=== PATIENT | female | born 1950 | race Caucasian/White ===

== ENCOUNTER 2016-10-20 18:48 | Emergency (ER) | payer MEDICARE ==
[2016-10-20] MEDS ORDERED: IPRATROPIUM/ALBUTEROL 3 ML VIAL NEB ONE (19:21)
[2016-10-20] MEDS ORDERED: SODIUM CHLORIDE 0.9% 1000ML 500 ML IVS ONE (20:53)
[2016-10-20] MEDS ORDERED: HEPARIN SODIUM (PORCINE) 5,000 U/ML VIAL IV ONE (20:54)
[2016-10-20] MEDS ORDERED: ASPIRIN (CHEWABLE) 81 MG TAB PO ONE (20:57)
--- NOTE | 2016-10-20 21:12 | RAD ---
Procedure: XR CHEST 2 VIEWS Exam Date: 10/20/2016 Ordering Provider: Roberth Wild Clinical Indication: hypoxia Comparison: 10/26/2014 Findings: The heart is enlarged. Pulmonary vasculature is normal. Mediastinal contour is normal. Aortic contour is normal. Subtle hazy opacities in the right upper lobe may represent early infiltrate. Subsegmental atelectasis/scarring in the left upper lobe. No pleural effusion. There is no pneumothorax. There is no acute bony or soft tissue abnormality. Impression: 1. Subtle hazy opacities in the right upper lobe may represent early infiltrate. 2. Cardiomegaly. Electronically signed by: Abraham Kelsey MD 10/20/2016 9:11 PM CDT
--- NOTE | 2016-10-20 21:17 | ED.PDOC ---
History of Present Illness - General Chief Complaint: Respiratory Problem Stated Complaint: Dx'd with Pneumonia, Nauseated Time Seen by Provider: 10/20/16 18:56 Source: patient, family Exam Limitations: no limitations - History of Present Illness Initial Comments: the patient is a 66-year-old female presenting to the emergency room secondary to persistent shortness of breath. The patient first developed shortness of breath approximately one week ago. She reports having diaphoretic episodes. No chest pain. She does get more short of breath with lying back. No palpitations. No syncopal or near syncope. She reports a very poor appetite. She does not report any new back pain or abdominal pain. No blood in the stools or urine. No difficulties with urination. She reports a sputum that is mainly quite. No blood in her sputum. She reports increased dyspnea on exertion. She is mildly tachypnea upon her arrival here. Oxygen saturations upon arrival here on room air are 83-86%. The patient has no history of any cardiopulmonary disease to speak of. The patient did have one kidney removed several years ago secondary to a mass that turned out to be benign apparently. The patient saw her primary care doctor early this week and was started on oral azithromycin and a oral cephalosporin. She has failed to improve so she showed up here tonight. Timing/Duration: 1 week Severity: moderate Improving Factors: nothing Worsening Factors: eating Associated Symptoms: cough, diaphoresis, loss of appetite, malaise, shortness of breath, weakness Allergies/Adverse Reactions: Allergies Allopurinol Allergy (Verified 07/20/16 09:08) Carbamazepine [From Tegretol] Allergy (Verified 10/04/12 15:11) Febuxostat [From Uloric] Allergy (Verified 07/20/16 09:08) Latex Allergy (Verified 07/20/16 09:08) Methylprednisolone [From Solu-Medrol] Allergy (Verified 07/20/16 09:08) Phenytoin [From Dilantin] Allergy (Verified 10/04/12 15:11) Home Medications: Ambulatory Orders Pregabalin [Lyrica] 150 mg PO BID #0 10/06/12 Tramadol HCl 50 mg PO PRN PRN #0 10/06/12 Verapamil HCl [Verapamil HCl SA] 240 mg PO HS #0 10/06/12 Diphenhydramine HCl [Benadryl] 25 mg PO PRN 07/20/16 Valsartan [Diovan] 160 mg PO HS 07/20/16 Review of Systems - Review of Systems Constitutional: States: diaphoresis, malaise, weakness EENTM: States: no symptoms reported Respiratory: States: cough, orthopnea, short of breath Cardiology: States: no symptoms reported Gastrointestinal/Abdominal: States: other - ild anorexia Genitourinary: States: no symptoms reported Musculoskeletal: States: no symptoms reported Skin: States: no symptoms reported Neurological: States: no symptoms reported Endocrine: States: excessive sweating Hematologic/Lymphatic: States: no symptoms reported All other Systems: No Change from Baseline Past Medical History (General) - Patient Medical History Hx Seizures: No Hx Stroke: No Hx Asthma: No Hx of COPD: No Hx Cardiac Disorders: No Hx Congestive Heart Failure: No Hx Pacemaker: No Hx Hypertension: Yes Hx Diabetes: No Hx Cancer: No Hx Hepatitis C: No Hx MRSA: No Surgical History: Hysterectomy - Vaccination History Hx Tetanus, Diphtheria Vaccination: Yes Hx Influenza Vaccination: Yes Hx Pneumococcal Vaccination: Yes Immunizations Up to Date: Yes - Social History Hx Tobacco Use: No Hx Chewing Tobacco Use: No Hx Alcohol Use: No Hx Substance Use: No Hx Substance Use Treatment: No Hx Depression: No Feels Threatened In Home Enviroment: No Feels Threatened In a Relationship: No Hx Physical Abuse: No Hx Emotional Abuse: No Hx Suspected Abuse: No - Female History Patient is a Female of Child Bearing Age (10 -59 yrs old): No Patient : No Family Medical History - Family History Mother Family History: Unknown Physical Exam - Physical Exam General Appearance: Alert, No apparent distress Eye Exam: bilateral normal Ears, Nose, Throat: normal ENT inspection, normal pharynx Neck: non-tender, full range of motion Respiratory: chest non-tender, other - the patient has mild bibasilar rales. She is to. There is mild accessory muscle use. Cardiovascular/Chest: normal peripheral pulses, regular rate, rhythm - occasional PVCs on telemetry, no edema Peripheral Pulses: radial,right: 2+, radial,left: 2+, dorsalis pedis,right: 2+, dorsalis pedis,left: 2+ Gastrointestinal/Abdominal: non tender - morbidly obese, soft Rectal Exam: deferred Back Exam: normal inspection, no CVA tenderness, no vertebral tenderness Extremity: normal range of motion, non-tender, normal inspection, no pedal edema , normal capillary refill Neurologic: no motor/sensory deficits, alert, normal mood/affect, oriented x 3 Skin Exam: normal color Comments: Vital Signs - 24 hr 10/20/16 10/20/16 10/20/16 19:40 19:44 19:46 Temperature 97.8 F Pulse Rate 67 Pulse Rate [L 63 63 arm] Respiratory 22 18 Rate Blood Pressure 132/95 [L Arm] O2 Sat by Pulse 86 L 99 Oximetry 10/20/16 10/20/16 10/20/16 19:59 20:00 20:02 Temperature Pulse Rate 67 Pulse Rate [L 70 74 arm] Respiratory 24 24 Rate Blood Pressure 132/85 148/33 [L Arm] O2 Sat by Pulse 93 L 92 L 88 L Oximetry 10/20/16 10/20/16 20:58 21:11 Temperature Pulse Rate 67 70 Pulse Rate [L 72 70 arm] Respiratory 24 24 Rate Blood Pressure 150/98 182/78 [L Arm] O2 Sat by Pulse 93 L 94 L Oximetry Progress - Progress Progress: 10/20/16 21:22 the patient is a 66-year-old female presenting with shortness of breath and hypoxia of an uncertain cause. Abnormalities seen in the workup included a chest x-ray consistent with cardiac strain, and elevated d-dimer and BNP, elevated liver function tests and an elevated troponin along with acute renal failure. Pulmonary embolus is certainly high on the differential and a VQ scan is likely warranted for the patient. Additionally an echocardiogram may prove useful. The patient has been given a dose of heparin IV here along with a dose of baby aspirin and supplemental oxygen. A urinalysis is still pending. Additional imaging in the form of CT scans without contrast may be warranted if the above workup fails to pinpoint the source of her decompensation. Again the patient has been on oral azithromycin and an oral cephalosporin for the last 3-4 days. transferring for higher level of care. The patient is much more comfortable after starting supplemental oxygen and is currently in no significant distress. - Results/Orders Results/Orders: Laboratory Tests 10/20/16 19:36 WBC 10.4 RBC 4.31 Hgb 12.1 Hct 36.4 MCV 84.4 MCH 28.1 MCHC 33.3 RDW 13.8 Plt Count 166 MPV 7.9 Absolute Neuts (auto) 7.40 H Absolute Lymphs (auto) 2.00 Absolute Monos (auto) 0.80 Absolute Eos (auto) 0.00 Absolute Basos (auto) 0.10 Neutrophils % 71.7 Lymphocytes % 19.4 L Monocytes % 7.9 Eosinophils % 0.0 L Basophils % 1.0 PT 13.7 H INR 1.210 PTT (SP) 29.6 D-Dimer, Quantitative 911 H* Sodium 137 Potassium 3.5 L Chloride 100 L Carbon Dioxide 26 Anion Gap 14.5 BUN 51 H Creatinine 2.45 H BUN/Creatinine Ratio 20.8 H Random Glucose 147 H Serum Osmolality 290.2 Calcium 9.2 Total Bilirubin 0.8 AST 80 H ALT 83 H Alkaline Phosphatase 46 Creatine Kinase 106 CK-MB (CK-2) 8.0 H* CK-MB (CK-2) % Not Reportable Troponin I 1.34 H* B-Natriuretic Peptide 552.0 H* Serum Total Protein 7.2 Albumin 3.7 Globulin 3.5 Albumin/Globulin Ratio 1.1 urinalysis is pending at this time. EKG shows normal sinus rhythm at a rate of 74 bpm. There is mild left axis deviation. Normal R-wave progression in anterior leads. No acute ST segment changes concerning for ischemia. There is a PVC. EKG is consistent with EKG from 2015. Patient was apparently seen by Dr. madrid in 2014 and was discharged from his clinic with a Bill of good health according to the patient. chest x-ray shows cardiomegaly with cephalization. I see no discrete focal pneumonia. There is possibly a nodule in the right middle to upper lobe. Radiology over read on the chest x-ray is pending due to technical difficulties. - EKG/XRAY/CT CT Ordered: No CT Interpretation Call Back: No Departure - Departure Clinical Impression: Hypoxia Acute renal failure Qualifiers: Acute renal failure type: unspecified Qualifier Code: (N17.9) Acute kidney failure, unspecified Congestive heart failure Qualifiers: Congestive heart failure type: unspecified congestive heart failure type Congestive heart failure chronicity: acute Qualifier Code: (I50.9) Heart failure , unspecified Disposition: Transfer to Hospital Home Medications: Ambulatory Orders Pregabalin [Lyrica] 150 mg PO BID #0 10/06/12 Tramadol HCl 50 mg PO PRN PRN #0 10/06/12 Verapamil HCl [Verapamil HCl SA] 240 mg PO HS #0 10/06/12 Diphenhydramine HCl [Benadryl] 25 mg PO PRN 07/20/16 Valsartan [Diovan] 160 mg PO HS 07/20/16 Transfer to Outside Facility - Transfer Information Accepting Provider:: dr rollins Accepting Facility: [facility] Reason for Transfer: specialized care not available
[2016-10-20 22:09] VITALS: BP 153/75; TEMP 96.5; O2SAT 93
== END 2016-10-20 22:16 | disposition short-term general hospital (02) ==
LOC: ER 18:48
DX: R09.02 Hypoxemia (principal); N17.9 Acute kidney failure, unspecified; I11.0 Hypertensive heart disease with heart failure; I50.9 Heart failure, unspecified; Z79.899 Other long term (current) drug therapy; Z88.8 Allergy status to other drugs, medicaments and biological substances; Z91.040 Latex allergy status; Z90.5 Acquired absence of kidney
CPT/HCPCS: 36415; 71020; 80053; 82550; 82553; 83880; 84484; 85025; 85379; 85610; 85730; 87040; 87502; 93005; 94640; J1644; J7030; J7620

== ENCOUNTER → 2017-06-05 | Outpatient (CLI) | payer MEDICARE ==
--- NOTE | 2017-06-05 09:14 | US ---
EXAM DESCRIPTION: Renal CLINICAL HISTORY: 67 years, Female, CYST OF KIDNEY COMPARISON: April 13, 2016 renal ultrasound FINDINGS: The right kidney has been removed similar to prior study. No abnormality seen in the right renal fossa. On today's examination left kidney 12.1 cm in length. There is a well-circumscribed echogenic mass interpolar region measuring 1.7 x 1.4 x 1.5 cm. This lesion does not demonstrate obvious increased vascularity by Doppler imaging. No images of the bladder provided. IMPRESSION: New hypoechoic lesion left kidney interpolar region compared to last year. Recommend additional characterization with renal protocol CT scan Electronically signed by: Juan Antonio Alston MD 06/05/2017 9:13 AM [employer]
== END | disposition home or self-care (01) ==
LOC: US 10:35
PROVIDERS: ATTEND Urology
DX: N28.1 Cyst of kidney, acquired (principal)

== ENCOUNTER → 2017-06-28 | Outpatient (CLI) | payer MEDICARE | END | disposition home or self-care (01) | LOC: GMAB 10:30 | PROVIDERS: ATTEND Family Medicine | DX: I10 Essential (primary) hypertension (principal) ==

== ENCOUNTER → 2017-11-22 | Outpatient (CLI) | payer MEDICARE ==
--- NOTE | 2017-11-22 16:15 | MRI ---
MRI left knee without contrast INDICATION: Osteoarthrosis knee pain chronic TECHNIQUE: Noncontrast MR imaging left knee FINDINGS: There is ganglion formation posterior to the PCL in the midline and small adjacent Mckeon's cyst with intracystic body/filling defect. Fairly large joint effusion with advanced patellofemoral chondrosis and osteoarthrosis. Mild lateral patellar tracking/subluxation. Extensive grade 4 chondrosis throughout the lateral patellofemoral joint with marginal osteophytes. Deficient ACL chronic in appearance. PCL is intact with only mild interstitial degenerative signal. No rupture of the extensor tendons. Severe diffuse grade 4 chondrosis and osteoarthrosis throughout the lateral tibiofemoral compartment. Severe volume loss of the lateral meniscus with diffuse degenerative tear. Diffuse degenerative tear posterior horn medial meniscus extending into the meniscal body and anterior horn with mild free edge fraying. Moderate osteoarthrosis the medial tibiofemoral compartment. There is intraosseous cystic change in the distal femur with adjacent marrow edema. There appears to be intraosseous cystic change emanating from the femoral attachment of the gastrocnemius tendons. The vague lesion surrounded by edema in the medial distal femoral metaphysis is most likely related to the cystic change. Chondroid lesion superimposed on this would be a consideration but less likely. This probably emanates from the medial head gastrocnemius attachment. CT would be useful to help confirm this to exclude underlying chondroid matrix IMPRESSION: Severe osteoarthrosis throughout the left knee with prominent intraosseous cystic changes in the distal femur with adjacent marrow edema see above discussion and recommendations Diffuse degenerative tears of both menisci Chronically deficient ACL with interstitial mucoid degeneration/ganglion from remote tear probably functionally absent Large joint effusion Extraosseous ganglion formation posterior midline near the PCL Mckeon's cyst with intracystic body Electronically signed by: Cristofer Gray MD 11/22/2017 4:13 PM CDT
== END ==
LOC: MRI 14:00
PROVIDERS: ATTEND Family Medicine
DX: M17.12 Unilateral primary osteoarthritis, left knee (principal); M25.462 Effusion, left knee; M71.22 Synovial cyst of popliteal space [Baker], left knee

== ENCOUNTER → 2018-01-03 | Outpatient (CLI) | payer MEDICARE | LOC: GMAB 10:39 | PROVIDERS: ATTEND Family Medicine | DX: Z01.818 Encounter for other preprocedural examination (principal); Z51.81 Encounter for therapeutic drug level monitoring ==

== ENCOUNTER → 2018-05-17 | Outpatient (CLI) | payer MEDICARE ==
--- NOTE | 2018-05-17 10:59 | US ---
EXAM DESCRIPTION: Renal: Ultrasound. CLINICAL HISTORY: CYST COMPARISON: Bilateral renal arterial Doppler evaluation on the same visit. TECHNIQUE: Transcutaneous scanning: Two-dimensional and Doppler modes. FINDINGS: Right kidney has been surgically removed. Fatty mesentery in the right renal fossa. Left kidney measures 11.0 x 5.6 x 5.5 cm; mid-renal cortical thickness 11 mm. Normal cortical echogenicity. Circumscribed, echogenic mass in the cortex, uniform echoes, 1.6 x 1.4 cm. Nonvascular. No hydronephrosis. No echogenic stones. 8 x 7 mm nonvascular anechoic cyst. Smooth contour of the kidney with no perinephric fluid. Normal vascularity.. Proximal ureter not visualized. Urinary bladder was visualized. Prevoid volume 83.1 mL. Ureteral jet in the bladder seen on the left by Doppler. Patient did not void. Abdominal aorta diameter(cm): Proximal - 2.5 Mid - 1.7 Distal - 1.6. IMPRESSION: 1. Right kidney has been surgically removed. 2. Left kidney normal size with thinning of the cortex. 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 No clinical significance. Left ureter not visualized. 3. Minimal filling of the urinary bladder. Left ureteral jets seen by Doppler. No fluid around the bladder. Normal caliber of the abdominal aorta. Electronically signed by: Boo Walker MD 05/17/2018 10:57 AM CDT
== END ==
LOC: US 09:00
PROVIDERS: ATTEND Urology
DX: N28.1 Cyst of kidney, acquired (principal); Z90.5 Acquired absence of kidney

== ENCOUNTER → 2018-07-01 | Outpatient (CLI) | payer MEDICARE | LOC: GMAE 10:58 | PROVIDERS: ATTEND Family Medicine | DX: I10 Essential (primary) hypertension (principal); M10.9 Gout, unspecified ==

== ENCOUNTER → 2018-11-28 | Outpatient (CLI) | payer MEDICARE ==
--- NOTE | 2018-11-28 11:31 | US ---
History: Follow-up left adrenal nodule. Right nephrectomy. Renal ultrasound: The left kidney is 12.0 cm in length. Right renal bed is unremarkable. Study is compared with exam from 05/2017. Diffusely echogenic 14 mm nodule lower pole left kidney is stable and unchanged and sonographically compatible with the known angiomyolipoma. 7 mm simple cyst is also demonstrated in the upper pole of the left renal cortex. The renal cortical thickness is well-maintained. No echogenic stones are demonstrated. No obstruction is shown. The urinary bladder is only partially distended and appears unremarkable. IMPRESSION: Stable 14 mm nodule left kidney since 2016 in a patient status post right nephrectomy. Ultrasound findings are compatible with clinical diagnosis of angiomyolipoma. Electronically signed by: Jeannie Dyer MD 11/28/2018 11:29 AM CDT
== END ==
LOC: US 09:00
PROVIDERS: ATTEND Urology
DX: D30.02 Benign neoplasm of left kidney (principal)

== ENCOUNTER 2019-03-26 05:42 | Day surgery (SDC) | payer MEDICARE ==
[2019-03-26] MEDS ORDERED: LACTATED RINGERS 1,000 ML ONE (06:00)
--- NOTE | 2019-03-26 09:22 | OP ---
DATE OF PROCEDURE: 03/26/19 PREOPERATIVE DIAGNOSIS: 1. History of polyps. Her last colonoscopy was 2012. POSTOPERATIVE DIAGNOSIS: 1. Two colonic polyps. 2. Sigmoid diverticulosis. 3. Internal hemorrhoids. PROCEDURE: 1. Colonoscopy plus polypectomy. SURGEON: Jerome Polk MD. COMPLICATIONS: None apparent. BLOOD LOSS: None. MEDICATIONS: Monitored anesthesia care. DESCRIPTION OF PROCEDURE: Informed consent was obtained prior to sedation. The preprocedure cardiopulmonary assessment was satisfactory. The patient was placed in the left lateral decubitus position and was sedated. A digital rectal exam was performed and was unremarkable. The tip of the Olympus colonoscope was inserted in the rectum and guided over to the cecum. The cecum was identified by locating the ileocecal valve and appendiceal orifice. Prep was good. The mucosa of the cecum, ascending colon, hepatic flexure, transverse colon, splenic flexure, descending colon and sigmoid colon was closely examined. Direct and retroflexed views of the rectum were obtained. The patient had two small sessile polyps, both about 3 mm in size. One was in the descending colon and one was in the sigmoid colon. These were both removed with a cold snare and recovered. There was sigmoid diverticulosis. There were internal hemorrhoids. Otherwise, the colonoscopy was unremarkable. RECOMMENDATIONS: Followup the polyp pathology. I will recommend a followup colonoscopy in 5 years because of her history of polyps. #[id number] cc: Emery Salvador MD [facility]
[2019-03-26 10:00] VITALS: BP 186/86; TEMP 97.1; O2SAT 97
[2019-03-26] MEDS ORDERED: PROPOFOL 200 MG/20 ML VIAL IV ONE (10:00)
[2019-03-26] MEDS ORDERED: LIDOCAINE 1% 10 ML VIAL INJ ONE (10:00)
== END 2019-03-26 09:50 | disposition home or self-care (01) ==
LOC: AMB 05:42
PROVIDERS: ATTEND Internal Medicine Gastroenterology
DX: Z12.11 Encounter for screening for malignant neoplasm of colon (principal); D12.4 Benign neoplasm of descending colon; D12.5 Benign neoplasm of sigmoid colon; K57.30 Diverticulosis of large intestine without perforation or abscess without bleeding; K64.8 Other hemorrhoids; I10 Essential (primary) hypertension; E66.9 Obesity, unspecified; Z68.38 Body mass index [BMI] 38.0-38.9, adult; Z86.010 Personal history of colon polyps; Z90.710 Acquired absence of both cervix and uterus; Z96.659 Presence of unspecified artificial knee joint; Z79.899 Other long term (current) drug therapy
CPT/HCPCS: 00812; 45385; 88305; J3490; J7120

== ENCOUNTER → 2019-07-24 | Outpatient (CLI) | payer MEDICARE | LOC: GMAE 10:15 | PROVIDERS: ATTEND Family Medicine | DX: M10.9 Gout, unspecified (principal); I10 Essential (primary) hypertension ==

== ENCOUNTER → 2019-11-27 | Outpatient (CLI) | payer MEDICARE ==
--- NOTE | 2019-11-27 15:34 | US ---
EXAM DESCRIPTION: Renal: Ultrasound. CLINICAL HISTORY: 69 years Female HISTORY OF LEFT RENAL CYST. Renal angiomyolipoma. COMPARISON: Ultrasound renal November 2018, April 2018, and May 2017. TECHNIQUE: Transcutaneous scanning: Two-dimensional and Doppler modes. Technically difficult study due to patient body habitus. FINDINGS: Right renal fossa contains no fluid or soft tissue mass. Left kidney measures 11.5 x 6.0 x 4.9 cm; mid-renal cortical thickness normal with normal. echogenicity. No hydronephrosis. No echogenic stones. Echogenic object within the mid left kidney measures 1.5 x 1.2 x 1.3 cm which is stable since the prior study. Juxtacortical cyst on the upper pole measuring 1.1 x 1.0 x 1.0 cm. Otherwise smooth contour of the kidney with no perinephric fluid. Normal vascularity.. Proximal ureter not seen.. Urinary bladder was visualized. Prevoid volume 39.7 mL. Ureteral jet in the bladder not seen during color Doppler interrogation. No voiding. Abdominal aorta: Normal caliber from the proximal segment to the distal bifurcation. IMPRESSION: 1. 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 Stable small juxtacortical cyst. Otherwise unremarkable left kidney. No mass or fluid in the right renal fossa. 2. Less than 40 mL in the urinary bladder and patient unable to void. No ureteral jet seen within the bladder. Electronically signed by: Boo Walker MD 11/27/2019 3:33 PM CDT
== END ==
LOC: US 08:42
PROVIDERS: ATTEND Urology
DX: Q60.2 Renal agenesis, unspecified (principal); N28.1 Cyst of kidney, acquired; D17.71 Benign lipomatous neoplasm of kidney

== ENCOUNTER → 2020-02-10 | Outpatient (CLI) | payer MEDICARE ==
--- NOTE | 2020-02-10 16:14 | RAD ---
EXAM DESCRIPTION: Toes,Left: CR/DR/XR. CLINICAL HISTORY: 69 years Female, CELLULITIS OF TOE OF LEFT FOOT COMPARISON: None. TECHNIQUE: 3 views AP lateral oblique left second toe. FINDINGS: Soft tissue swelling around the middle phalanx and distal phalanx of the left second toe Fracture of the distal shaft of the middle phalanx of the left second toe with impaction into the remainder of the shaft. Medial and lateral projecting bone densities around the shaft could represent callus formation or soft tissue calcification. The lateral view suggest possible dorsal subluxation or dislocation of the distal phalanx on the middle phalanx. Decreased bone density.. IMPRESSION: Soft tissue swelling left second toe around middle and distal phalanx with possible dorsal migration or dislocation of the distal phalanx on the second phalanx and impaction fracture distal shaft of the middle phalanx and possible dorsal angulation. DIP joint probably involved. Electronically signed by: Boo Walker MD 02/10/2020 4:13 PM CDT
== END ==
LOC: YCFC.O 10:00
PROVIDERS: ATTEND Family Medicine
DX: L03.032 Cellulitis of left toe (principal); M25.9 Joint disorder, unspecified

== ENCOUNTER 2020-04-26 05:18 | Day surgery (SDC) | payer MEDICARE ==
[2020-04-26] MEDS ORDERED: MIDAZOLAM INJ 2 MG/2 ML VIAL ONE (11:14)
[2020-04-26] MEDS ORDERED: PROPARACAINE 0.5% OPHTH SOL 15 ML BTTL LEFT_EYE ONE (11:18)
[2020-04-26] MEDS ORDERED: DEXAMETHASONE 0.1% OPHTH SOL 1 DROP LEFT_EYE ONE ×2 (11:26→11:41)
[2020-04-26] MEDS ORDERED: LIDOCAINE 1% MPF 2 ML VIAL INJ ONE ×2 (11:26→11:32)
[2020-04-26] MEDS ORDERED: MOXIFLOXACIN HCL (OPHTH) 1 DROP DROPS LEFT_EYE ONE ×2 (11:26→11:41)
[2020-04-26] MEDS ORDERED: TOBRAMYCIN SULF 0.3 % OPHT SOL 1 DROP LEFT_EYE ONE ×2 (11:27→11:41)
[2020-04-26] MEDS ORDERED: BRIMONIDINE 0.2% OPHTH DROPS LEFT_EYE ONE ×2 (11:27→11:41)
== END 2020-04-26 12:20 | disposition home or self-care (01) ==
LOC: AMB 05:18
PROVIDERS: ATTEND Ophthalmology
DX: H25.12 Age-related nuclear cataract, left eye (principal); I10 Essential (primary) hypertension; E66.9 Obesity, unspecified; G47.30 Sleep apnea, unspecified; Z79.899 Other long term (current) drug therapy
CPT/HCPCS: 00142; 66984; J2250

== ENCOUNTER 2020-05-10 05:17 | Day surgery (SDC) | payer MEDICARE ==
[2020-05-10] MEDS ORDERED: TROP1%/CYCLOPEN 1%/PHENYL 2.5% DROPS OPHTH ONE (05:18)
[2020-05-10] MEDS ORDERED: PROPARACAINE 0.5% OPHTH SOL 15 ML BTTL RIGHT_EYE ONE ×2 (08:41→09:00)
[2020-05-10] MEDS ORDERED: MOXIFLOXACIN HCL (OPHTH) 1 DROP DROPS RIGHT_EYE ONE ×2 (08:41→09:00)
[2020-05-10] MEDS ORDERED: TOBRAMYCIN SULF 0.3 % OPHT SOL 1 DROP RIGHT_EYE ONE ×2 (08:41→09:00)
[2020-05-10] MEDS ORDERED: LIDOCAINE 1% 2 ML VIAL INJ ONE ×2 (08:41→09:00)
[2020-05-10] MEDS ORDERED: DEXAMETHASONE 0.1% OPHTH SOL 1 DROP RIGHT_EYE ONE ×2 (08:41→09:00)
[2020-05-10] MEDS ORDERED: BRIMONIDINE 0.2% OPHTH DROPS RIGHT_EYE ONE ×2 (08:42→09:00)
[2020-05-10] MEDS ORDERED: MIDAZOLAM INJ 2 MG/2 ML VIAL ONE (09:00)
== END 2020-05-10 09:52 | disposition home or self-care (01) ==
LOC: AMB 05:17
PROVIDERS: ATTEND Ophthalmology
DX: H25.11 Age-related nuclear cataract, right eye (principal); I10 Essential (primary) hypertension; E66.9 Obesity, unspecified; M10.9 Gout, unspecified; Z79.899 Other long term (current) drug therapy
CPT/HCPCS: 00142; 66984; J2250

== ENCOUNTER → 2020-07-28 | Outpatient (CLI) | payer MEDICARE | LOC: GMAE 11:01 | PROVIDERS: ATTEND Family Medicine | DX: I10 Essential (primary) hypertension (principal); M10.9 Gout, unspecified; Z79.899 Other long term (current) drug therapy ==